=== PATIENT | male | born 1970 | race Caucasian/White ===

== ENCOUNTER 2018-08-05 17:58 | Emergency (ER) | payer MEDICAID ==
[~2018-08-05 17:58] MED LIST: Aspirin 81 MG Tab.Chew ONE
[2018-08-05] MEDS ORDERED: Aspirin 81 MG Tab.Chew PO ONE (18:07)
--- NOTE | 2018-08-05 20:04 | ER ---
HISTORY OF PRESENT ILLNESS: A 48-year-old male here with complaints of some chest discomfort. He has had off and on since yesterday. He does not describe it as pain. He states he just feels different possibly pressure and discomfort more so than sharp pain. The worst pain has been maybe a 3/10. The patient states the last episode was this morning. He has not had any pain all afternoon. The patient states his hands and feet have been a little tingly and have felt weird at times. This is much better as well from what it was earlier. The patient has not had any problems with coughing, nausea, fever, shortness of breath or wheezing. He has no history of coronary artery disease. He does have history of hypertension and he takes Norvasc 5 mg a day. The patient tells me that he quit smoking 5 years ago. OBJECTIVE: GENERAL APPEARANCE: The patient is awake and alert, in no obvious distress. VITAL SIGNS: Reviewed. Blood pressure initially is 160/109, pulse 88, he is afebrile. HEENT: Ears; TMs are normal. Nares are patent. Oral mucous membranes moist. Tonsils not enlarged or injected. Pharynx not inflamed. NECK: Supple. LUNGS: Clear. CARDIAC: Heart sounds are distinct without murmurs. S1, S2 present. Regular rate. ABDOMEN: Soft, nontender. SKIN: Warm and dry. LAB AND X-RAY: EKG shows normal sinus rhythm. Labs include a CBC which is normal. CMP shows elevated liver enzymes. His AST is 115, ALT is 205, alkaline phosphatase is 136. Troponin is negative. Chest x-ray is unremarkable. INITIAL TREATMENT: Four baby aspirin were given to the patient. DIAGNOSIS: Elevated liver enzymes. TREATMENT PLAN: I had a discussion with the patient about Tylenol or alcohol use. He states he does drink alcohol very modestly. He had 2 drinks last night. I advised the patient to stop all alcohol and Tylenol products. He is to continue with his normal activity. He is going home tomorrow. He lives in [place], [place]. I advised the patient to call his doctor's office Tuesday morning and schedule an appointment time next week for recheck and for further evaluation. CRS/MODL /[id number]
--- NOTE | 2018-08-06 11:32 | CR ---
DATE OF SERVICE: 08/05/18 CLINICAL DATA: chest pain AP PORTABLE CHEST: The heart size is normal. The lungs are clear. No pneumothorax. No pleural effusions. No evidence of acute intrathoracic disease. [id number] MTDD
== END 2018-08-05 18:58 | disposition home or self-care (01) ==
LOC: LB.ED 17:58
DX: R74.8 Abnormal levels of other serum enzymes (principal); R07.9 Chest pain, unspecified
CPT/HCPCS: 36415; 71045; 80053; 84484; 85025; 93005; 99285-25; A9270-GY